=== PATIENT | male | born 1940 | race Caucasian/White ===

== ENCOUNTER 2019-04-20 20:33 | Inpatient (IN) | payer MEDICARE, OTHER ==
[~2019-04-20] VITALS: Ht 185.4 cm; Wt 93.0 kg
[2019-04-20] MEDS ORDERED: TRAZ-182 PO (21:08)
[2019-04-20] MEDS ORDERED: SILV10PO2 MC (21:08)
[2019-04-20] MEDS ORDERED: FURO20TA4 PO (21:08)
[2019-04-20] MEDS ORDERED: DABI150C PO (21:08)
[2019-04-20] MEDS ORDERED: HYDR-4077 PO (21:08)
[2019-04-20] MEDS ORDERED: BENA40TA8 PO (21:08)
[2019-04-20] MEDS ORDERED: SERT25TA PO (21:08)
[2019-04-20] MEDS ORDERED: SENN-18 PO (21:08)
[2019-04-20] MEDS ORDERED: DILT-3 PO (21:08)
[2019-04-20] MEDS ORDERED: DOCU250C14 PO (21:08)
[2019-04-20] MEDS ORDERED: METO50TA16 PO (21:08)
[2019-04-20] MEDS ORDERED: DONE10TA44 PO (21:08)
[2019-04-20] MEDS ORDERED: CIPR500T5 PO (21:08)
--- NOTE | 2019-04-20 21:10 | NUR ---
MD AT BEDSIDE FOR HX AND PHYSICAL PT IS ALERT NAD, HERE FOR MEDICAL CLEARANCE CALM AND COMPLIANT [address] : DANGER TO SELF AND OTHERS SIGNED BY BIBIANA ROCHA
[2019-04-20 21:27] LABS: BASOPHILS # (AUTO) 0.1 K/uL (0.0-8.0); BASOPHILS % (AUTO) 0.8 % (0.0-2.0); EOSINOPHILS # (AUTO) 0.3 K/uL (0.0-0.7); HEMATOCRIT 46.4 % (36.7-47.1); HEMOGLOBIN 15.5 g/dL (12.5-16.3); LYMPHOCYTES # (AUTO) 0.9 K/uL (20.0-40.0); LYMPHOCYTES % (AUTO) 10.3 % (20.5-51.5); MEAN CORPUSCULAR HEMOGLOBIN 32.5 uug (23.8-33.4); MEAN CORPUSCULAR HGB CONC 34 g/dL (32.5-36.3); MEAN CORPUSCULAR VOLUME 97.1 fL (73.0-96.2); MONOCYTES # (AUTO) 0.9 K/uL (2.0-10.0); MONOCYTES % (AUTO) 10.2 % (0.0-11.0); NEUTROPHILS # (AUTO) 6.5 K/uL (1.8-8.9); NEUTROPHILS % (AUTO) 74.7 % (38.5-71.5); PLATELET COUNT (AUTO) 241 K/uL (152-348); RED BLOOD CELL COUNT(AUTO) 4.78 MIL/uL (4.06-5.63); WHITE BLOOD COUNT (AUTO) 8.7 K/uL (3.6-10.2)
[2019-04-20 21:37] LABS: CARBON DIOXIDE 25 mmol/L (21-32); CHLORIDE 108 mmol/L (98-107); CREATININE 1.6 mg/dL (0.6-1.3); GLUCOSE 106 mg/dL (74-106); POTASSIUM 4.7 mmol/L (3.5-5.1); UREA NITROGEN, BLOOD 28 mg/dL (7-18)
[2019-04-20 21:43] LABS: ALANINE AMINOTRANSFERASE 27 U/L (16-63); ALKALINE PHOSPHATASE 93 U/L (50-136); ASPARTATE AMINOTRANSFERASE 19 U/L (15-37); BILIRUBIN,DIRECT 0.1 mg/dL (0.0-0.2); BILIRUBIN,TOTAL 0.4 mg/dL (0.2-1.0)
[2019-04-20 21:47] LABS: ACETAMINOPHEN < 2.0 ug/mL (10-30)
[2019-04-20 21:51] LABS: THYROID STIMULATING HORMONE 1.889 mIU/mL (0.358-3.740)
[2019-04-20 21:55] LABS: ETHANOL < 3 MG/DL (0-0)
--- NOTE | 2019-04-20 22:09 | NUR ---
GAURI GLOVER ON THE PHONE W/ JAVIER GLOVER PT WILL BE ADMITTED FOR TELE RM 305 DX AFIB NEW ONSET PT NAD ASLEEP BUT EASILY ROUSED SIDERAILSX2 UP BED AT LOWEST POSITION KEPT WARM DRY AND COMFORTABLE COMPLIANT AOX2 (NAME AND PLACE)
--- NOTE | 2019-04-20 22:10 | NUR ---
CALL FOR BED DONE
--- NOTE | 2019-04-20 22:22 | NUR ---
ATTEMPTED TO CALL FOR HAND OFF AND SBAR BUT STATES RN IS STILL ENROUTE ELECTROSTATIC PAINTER STATES THEY WILL CALL BACK ONCE SHE IS HERE, APPROX 20MINS
--- NOTE | 2019-04-20 22:35 | NUR ---
Dr. Le spoke with Dr. Chau on phone. Pt is medically cleared.
--- NOTE | 2019-04-20 22:40 | NUR ---
HAND OFF AND SBAR GIVEN TO RADHA GAINES
[2019-04-20] MEDS ORDERED: SENNOSIDES 1 TABLET PO PRN (22:45)
[2019-04-20] MEDS ORDERED: DOCUSATE SODIUM 250 MG CAPSULE PO PRN (22:45)
[2019-04-20 23:00] VITALS: BP 163/87
[2019-04-20] MEDS ORDERED: TEMAZEPAM 7.5 MG CAPSULE PO PRN (23:00)
[2019-04-20] MEDS ORDERED: MAG HYDROX/AL HYDROX/SIMETH 30 ML LIQUID UDC PO PRN (23:00)
[2019-04-20] MEDS ORDERED: MAGNESIUM HYDROXIDE 30 ML LIQUID UDC PO PRN (23:00)
[2019-04-20] MEDS ORDERED: LORAZEPAM 1 MG TABLET PO PRN (23:00)
[2019-04-20] MEDS ORDERED: ACETAMINOPHEN 325 MG TABLET PO PRN (23:00)
--- NOTE | 2019-04-20 23:03 | NUR ---
Pt. admitted to [facility] 138[facility] , under care of Dr. VALLADARES/ JAVIER Belongs List completed ALL BELONGINGS W/ PT
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
[2019-04-21] MEDS ORDERED: hydrALAZINE HCL 25 MG TABLET PO ONE
[2019-04-21] MEDS ORDERED: hydrALAZINE HCL 25 MG TABLET PO PRN (00:15)
[2019-04-21] MEDS ORDERED: hydrALAZINE HCL 25 MG TABLET ONE (00:29)
--- NOTE | 2019-04-21 06:05 | NUR ---
Patient was showered when admitted and went to bed, slept well. UA is needed, patient just got up to try and go with urinal, but was unable to and said he would try again later. BP is WNL. Will endorse to next shift.
[2019-04-21] MEDS ORDERED: Z GUARD REMEDY PASTE 57 GM TUBE TOP PRN (07:15)
[2019-04-21 07:30] VITALS: BP 157/79
[2019-04-21] MEDS ORDERED: DABIGATRAN ETEXILATE MESYLATE 150 MG CAPSULE PO SCH (09:00)
[2019-04-21] MEDS ORDERED: DABIGATRAN ETEXILATE MESYLATE 150 MG CAPSULE PO ONE (09:00)
[2019-04-21] MEDS: METOPROLOL TARTRATE 50 MG TABLET PO SCH ×2 (09:21→20:40)
[2019-04-21] MEDS: hydrALAZINE HCL 50 MG TABLET PO SCH ×2 (09:21→21:00)
[2019-04-21] MEDS: FUROSEMIDE 20 MG TABLET PO SCH (09:22)
[2019-04-21] MEDS: DILTIAZEM HCL CD 240 MG CAP.SR.24H PO SCH (09:22)
[2019-04-21] MEDS: DONEPEZIL 10 MG TABLET PO SCH (09:22)
--- NOTE | 2019-04-21 11:04 | NUR ---
Family Contact: PEGGY contacted pts caregiver Rochelle Holland ([phone]) for treatment and discharge planning. Per Amalia, she stated that she is pts power authority and will fax legal documentations. Pt currently resides at a Assisted living, [place] [address]; ([phone]). Per Amalia, expressed that she is involved in pts care and that pt needs higher care such as Board and Care. Amalia expressed that she has been in contact with [employer] and is waiting for there approval. PEGGY informed her that pt wishes to be discharged to his Assisted Living at [place].
--- NOTE | 2019-04-21 12:57 | NUR ---
Discharge Confirmation: roundhouse worker called social insurance administrator Darshan confirmed that pt can go back to facility upon discharge [[phone]], confirmed that pt will be accepted back to the facility once pt is ready to be discharged. Darshan expressed that pts caregiver Amalia ([phone]) is the POA of pt and would like SW to inform her as well.
--- NOTE | 2019-04-21 14:58 | NUR ---
INITIAL DISCHARGE: Pt currently resides at a Assisted Living at [address] [place] [address]; ([phone]). Per pt, he would like to go back to the Assisted Living. Per pts caregiver, Amalia ([phone]) would like pt to go to a Board and Care at [facility]. PEGGY will work with the pt and the MD regarding appropriate planning. SW will form a safe and proper discharge. Addendum: 04/21/19 at 1541 by JOSSELYN WOODS INITIAL DISCHARGE: Pt currently resides at a Assisted Living at [address] [place] [address]; ([phone]). Per pt, he would like to go back to the Assisted Living. Per pts caregiver, Amalia ([phone]) would like pt to go to a Board and Care at [facility] or to [facility]. PEGGY will work with the pt and the MD regarding appropriate planning. SW will form a safe and proper discharge.
--- NOTE | 2019-04-21 15:36 | NUR ---
SW Discharge Planning Update: Katherinejoseph Castillo from [facility] ([phone]) was sent from admin Darshan from [facility] ([phone]) where pt was initially resided at. [facility] and [facility] are affiliated facilities. Katherine Castillo from [facility] ([phone]) accepted pt and will take pt upon discharge.
[2019-04-21 16:00] VITALS: BP 139/78
[2019-04-21] MEDS: DABIGATRAN ETEXILATE MESYLATE 150 MG CAPSULE PO SCH (18:10)
[2019-04-21 18:42] LABS: *BILIRUBIN,URIN NEGATIVE (NEGATIVE); *COLOR,URINE YELLOW (YELLOW); *KETONES,URINE NEGATIVE (NEGATIVE); *UROBILINOGEN,URINE 0.2 E.U./dl (NORMAL); LEUKOCYTE ESTERASE ,URINE NEGATIVE (NEGATIVE); NITRITE, URINE NEGATIVE (NEGATIVE); UGLUCOSE NEGATIVE (NEGATIVE)
[2019-04-21 19:49] LABS: *BLOOD, URINE 1+ (NEGATIVE); *CLARITY,URINE SLIGHTLY HAZY (CLEAR)
[2019-04-21 19:53] LABS: RBC,URINE 20-50 /HPF (0-3); SQUAMOUS EPITHELIAL CELL,UR FEW /HPF (NONE SEEN); WBC,URINE 0-3 /HPF (0-3)
[2019-04-21 19:54] LABS: MUCUS,URINE MODERATE /LPF (0-FEW)
[2019-04-21 20:18] VITALS: BP 148/88
[2019-04-21] MEDS: DIVALPROEX SPRINKLE 125 MG CAP.SPRINK PO SCH (20:39)
[2019-04-21] MEDS: BENZTROPINE MESYLATE 0.5 MG TABLET PO SCH (20:39)
[2019-04-21] MEDS ORDERED: risperiDONE-M 0.5 MG TAB.RAPDIS PO SCH (21:00)
--- NOTE | 2019-04-21 22:00 | NUR ---
received to care, isolative, but easily agitated. compliant with medications, but remains confused. difficult to redirect, at times. as of 2199, he appears to be asleep. no distress noted. will continue to monitor closely.
--- NOTE | 2019-04-22 01:45 | NUR ---
PRN restoril given for insomnia/ restlessness
--- NOTE | 2019-04-22 06:00 | NUR ---
SLEPT 5.75 HOURS.
[2019-04-22 07:30] VITALS: BP 128/83
--- NOTE | 2019-04-22 08:43 | NUR ---
Family Contact: SW contacted pts caregiver Rochelle Holland ([phone]) to inform her that Katherine from [facility] ([facility]), ([phone]) came the the hospital for an evaluation and approved to admit pt upon discharge. Amalia, ([phone]) agreed to the treatment plan and discharge plan.
[2019-04-22] MEDS: DABIGATRAN ETEXILATE MESYLATE 150 MG CAPSULE PO SCH ×4 (09:00→17:55)
[2019-04-22] MEDS: FUROSEMIDE 20 MG TABLET PO SCH (09:59)
[2019-04-22] MEDS: DIVALPROEX SPRINKLE 125 MG CAP.SPRINK PO SCH ×2 (09:59→13:17)
[2019-04-22] MEDS: METOPROLOL TARTRATE 50 MG TABLET PO SCH ×2 (09:59→20:19)
[2019-04-22] MEDS: DONEPEZIL 10 MG TABLET PO SCH (09:59)
--- NOTE | 2019-04-22 10:00 | NUR ---
AM Pradaxa already charted and given at 1000 today.
[2019-04-22] MEDS: DILTIAZEM HCL CD 240 MG CAP.SR.24H PO SCH (10:01)
[2019-04-22] MEDS: hydrALAZINE HCL 50 MG TABLET PO SCH ×2 (10:02→21:00)
[2019-04-22 16:00] VITALS: BP 140/83
[2019-04-22] MEDS ORDERED: Z GUARD REMEDY PASTE 57 GM TUBE TOP PRN (17:15)
[2019-04-22] MEDS: BENZTROPINE MESYLATE 0.5 MG TABLET PO SCH (20:19)
[2019-04-22] MEDS: risperiDONE-M 0.5 MG TAB.RAPDIS PO SCH (20:19)
[2019-04-22 20:33] VITALS: BP 125/81
--- NOTE | 2019-04-22 22:00 | NUR ---
received to care, lying in bed, anxious, stating that he wants to be discharged soon, but pleasant upon approach. compliant with medications and staff direction. pt was provided with 1;1 interaction and was given reality orientation and emotional support. as of 2199, he appears to be asleep. no distress noted. will continue to monitor closely.
--- NOTE | 2019-04-23 06:46 | NUR ---
slept 8 hours. continues to sleep. no distress noted.
[2019-04-23 07:30] VITALS: BP 151/82
[2019-04-23] MEDS ORDERED: DIVALPROEX SPRINKLE 125 MG CAP.SPRINK PO SCH ×2 (09:00→21:00)
[2019-04-23] MEDS: DONEPEZIL 10 MG TABLET PO SCH (09:19)
[2019-04-23] MEDS: FUROSEMIDE 20 MG TABLET PO SCH (09:19)
[2019-04-23] MEDS: METOPROLOL TARTRATE 50 MG TABLET PO SCH ×2 (09:20→20:15)
[2019-04-23] MEDS: DABIGATRAN ETEXILATE MESYLATE 150 MG CAPSULE PO SCH ×2 (09:25→17:40)
[2019-04-23] MEDS: DILTIAZEM HCL CD 240 MG CAP.SR.24H PO SCH (09:25)
[2019-04-23] MEDS: hydrALAZINE HCL 50 MG TABLET PO SCH ×2 (09:26→20:15)
--- NOTE | 2019-04-23 12:23 | NUR ---
TECHNICAL SPECIALIST CYTOLOGY DR HASTINGS DPM NOTIFIED FOR CONSULT FOR NAIL CARE FOR PATIENT. DISCUSSED WITH PRIMARY NURSE FOR THE DAY.
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
--- NOTE | 2019-04-23 15:44 | NUR ---
Family Contact: Pts caregiver, Amalia ([phone]) faxed her certifications for POA.
--- NOTE | 2019-04-23 15:45 | NUR ---
Facility Contact: PEGGY faxed clinicals to [facility] to Katherine, ([phone]).
[2019-04-23 16:29] VITALS: BP 149/79
[2019-04-23] MEDS: risperiDONE-M 0.5 MG TAB.RAPDIS PO SCH ×2 (17:40→20:14)
[2019-04-23] MEDS: NEOMY/BACITRAC/POLYMI OINT 28.35 GM TUBE TOP SCH (17:42)
[2019-04-23] MEDS: BENZTROPINE MESYLATE 0.5 MG TABLET PO SCH (20:14)
[2019-04-23] MEDS: DIVALPROEX SPRINKLE 125 MG CAP.SPRINK PO SCH (20:14)
[2019-04-23 20:15] VITALS: BP 113/71
--- NOTE | 2019-04-23 22:00 | NUR ---
received to care, lying in bed, pleasant upon approach. compliant with medications and staff direction. as of 0, he appears to be asleep. no distress noted. will continue to monitor closely.
--- NOTE | 2019-04-24 06:00 | NUR ---
SLEPT 8.75 HOURS.
[2019-04-24 08:00] VITALS: BP 152/84
[2019-04-24] MEDS: FUROSEMIDE 20 MG TABLET PO SCH (08:30)
[2019-04-24] MEDS: risperiDONE-M 0.5 MG TAB.RAPDIS PO SCH ×3 (08:30→20:49)
[2019-04-24] MEDS: METOPROLOL TARTRATE 50 MG TABLET PO SCH ×2 (08:30→21:01)
[2019-04-24] MEDS: DIVALPROEX SPRINKLE 125 MG CAP.SPRINK PO SCH ×2 (08:30→20:49)
[2019-04-24] MEDS: DONEPEZIL 10 MG TABLET PO SCH (08:30)
[2019-04-24] MEDS: DABIGATRAN ETEXILATE MESYLATE 150 MG CAPSULE PO SCH ×2 (08:31→16:11)
[2019-04-24] MEDS: DILTIAZEM HCL CD 240 MG CAP.SR.24H PO SCH (08:32)
[2019-04-24] MEDS: CLOTRIMAZOLE 1% CREAM 30 GM TUBE TOP SCH (08:35)
[2019-04-24] MEDS: NEOMY/BACITRAC/POLYMI OINT 28.35 GM TUBE TOP SCH ×2 (08:35→16:13)
[2019-04-24] MEDS: hydrALAZINE HCL 50 MG TABLET PO SCH ×2 (08:38→21:50)
[2019-04-24 15:56] VITALS: BP 110/70
--- NOTE | 2019-04-24 17:17 | NUR ---
GPS: RECEIVED PATIENT ON HIS BED, AOX1, HOWEVER RECALL SOME EVENTS, PATIENT UNSTEADY IN AMBULATION HOWEVER CAN WALK WITH ASSIST, COMPLIANT WITH HIS MEDICATION, SITS IN THE CHAIR AND STAYED IN THE DINING ROOM IN THE MORNING, PATIENT GOT TIRED AND ASK TO GO BACK TO HIS BED , PATIENT REMAIN CALM AND COOPERATIVE IN NO DISTRESS, WILL CONTINUE MONITOR
--- NOTE | 2019-04-24 20:00 | NUR ---
RECEIVED PATIENT IN HIS ROOM IN BED SLEEPING BUT EASILY AROUSABLE. HE IS NOTED A/O X 1, CALM AND PLEASANT UPON APPROACHED. V/S STABLE AT THIS TIME. PATIENT IN REASSURED FOR HIS SAFETY. SAFETY AND FALL PRECAUTION IN PLACE. WILL CONTINUE TO MONITOR.
[2019-04-24 20:05] VITALS: BP 118/67
[2019-04-24] MEDS: BENZTROPINE MESYLATE 0.5 MG TABLET PO SCH (20:49)
[2019-04-25 06:50] LABS: BASOPHILS # (AUTO) 0.1 K/uL (0.0-8.0); BASOPHILS % (AUTO) 0.6 % (0.0-2.0); EOSINOPHILS # (AUTO) 0.5 K/uL (0.0-0.7); HEMOGLOBIN 17.2 g/dL (12.5-16.3); LYMPHOCYTES # (AUTO) 1.1 K/uL (20.0-40.0); LYMPHOCYTES % (AUTO) 10.5 % (20.5-51.5); MEAN CORPUSCULAR HEMOGLOBIN 32.3 uug (23.8-33.4); MEAN CORPUSCULAR HGB CONC 33 g/dL (32.5-36.3); MEAN CORPUSCULAR VOLUME 97.6 fL (73.0-96.2); MONOCYTES % (AUTO) 10.1 % (0.0-11.0); NEUTROPHILS # (AUTO) 7.5 K/uL (1.8-8.9); NEUTROPHILS % (AUTO) 73.8 % (38.5-71.5); PLATELET COUNT (AUTO) 280 K/uL (152-348); RED BLOOD CELL COUNT(AUTO) 5.33 MIL/uL (4.06-5.63); WHITE BLOOD COUNT (AUTO) 10.2 K/uL (3.6-10.2)
[2019-04-25 07:09] LABS: ALANINE AMINOTRANSFERASE 22 U/L (16-63); ALKALINE PHOSPHATASE 95 U/L (50-136); ASPARTATE AMINOTRANSFERASE 15 U/L (15-37); BILIRUBIN,TOTAL 0.6 mg/dL (0.2-1.0); CARBON DIOXIDE 22 mmol/L (21-32); CHLORIDE 108 mmol/L (98-107); CREATININE 1.4 mg/dL (0.6-1.3); GLUCOSE 102 mg/dL (74-106); MAGNESIUM 2.4 mg/dL (1.8-2.4); PHOSPHOROUS 3.7 mg/dL (2.5-4.9); POTASSIUM 4.1 mmol/L (3.5-5.1); TOTAL PROTEIN, SERUM 7.7 g/dL (6.4-8.2); UREA NITROGEN, BLOOD 36 mg/dL (7-18)
[2019-04-25 08:02] VITALS: BP 153/72
[2019-04-25] MEDS: NEOMY/BACITRAC/POLYMI OINT 28.35 GM TUBE TOP SCH ×2 (08:28→16:50)
[2019-04-25] MEDS: METOPROLOL TARTRATE 50 MG TABLET PO SCH ×2 (08:29→20:10)
[2019-04-25] MEDS: FUROSEMIDE 20 MG TABLET PO SCH (08:29)
[2019-04-25] MEDS: DILTIAZEM HCL CD 240 MG CAP.SR.24H PO SCH (08:29)
[2019-04-25] MEDS: CLOTRIMAZOLE 1% CREAM 30 GM TUBE TOP SCH (08:29)
[2019-04-25] MEDS: risperiDONE-M 0.5 MG TAB.RAPDIS PO SCH ×3 (08:29→20:09)
[2019-04-25] MEDS: DONEPEZIL 10 MG TABLET PO SCH (08:29)
[2019-04-25] MEDS: DABIGATRAN ETEXILATE MESYLATE 150 MG CAPSULE PO SCH ×2 (08:30→16:50)
[2019-04-25] MEDS: hydrALAZINE HCL 50 MG TABLET PO SCH ×2 (08:30→20:10)
[2019-04-25] MEDS: DIVALPROEX SPRINKLE 125 MG CAP.SPRINK PO SCH ×2 (08:30→20:09)
[2019-04-25 16:08] VITALS: BP 136/70
--- NOTE | 2019-04-25 16:24 | NUR ---
PT NOTED TO HAVE SOME BLADDER DISCOMFORT. UPON ASSESSMENT, NOTED BLADDER QUITE FIRM AND DISTENDED. PERFORMED BLADDER SCANNER, NOTED WITH >999CC. ASKED PT TO URINATE. BLADDER CONTINUES TO BE DISTENDED. PERFORMED STRAIGHT CATH WITH 16FR CATHETER USING ASEPTIC TECHNIQUE. REMOVED APPX 850CC OF URINE. TOLERATED PROCEDURE WELL.
[2019-04-25 20:00] VITALS: BP 134/53
[2019-04-25] MEDS: BENZTROPINE MESYLATE 0.5 MG TABLET PO SCH (20:09)
--- NOTE | 2019-04-26 06:53 | NUR ---
BLADDER SCANNER WAS DONE, WITH A RESULT OF 999ML IN BLADDER. DR PEREZ WAS NOTIFY AND NEW ORDER OBTAINED TO LEAVE THE TAMAYO CATH UNTIL FURTHER EVALUATION. ATTEMPTED TO INSERT A TAMAYO CATH USING A 16 FR. CATH. HOWEVER, THERE WAS SOME RESISTANCE AT TIME ON INSERTION. TO NOT CAUSE ANY TRAUMA, A STRAIGHT IN-AND-OUT CATH WAS THEN DONE USING A 15 FR. STRAIGHT CATH. 1100ML WERE REMOVED FROM HIS BLADDER. PATIENT TOLERATED WELL. WILL ENDORSE TO AM SHIFT TO F/U WITH . WILL CONTINUE TO MONITOR.
[2019-04-26 07:30] VITALS: BP 121/69
[2019-04-26] MEDS: DONEPEZIL 10 MG TABLET PO SCH (08:32)
[2019-04-26] MEDS: DIVALPROEX SPRINKLE 125 MG CAP.SPRINK PO SCH ×2 (08:32→20:55)
[2019-04-26] MEDS: DABIGATRAN ETEXILATE MESYLATE 150 MG CAPSULE PO SCH ×2 (08:33→17:11)
[2019-04-26] MEDS: hydrALAZINE HCL 50 MG TABLET PO SCH ×2 (08:33→20:56)
[2019-04-26] MEDS: DILTIAZEM HCL CD 240 MG CAP.SR.24H PO SCH (08:34)
[2019-04-26] MEDS: CLOTRIMAZOLE 1% CREAM 30 GM TUBE TOP SCH (08:35)
[2019-04-26] MEDS: NEOMY/BACITRAC/POLYMI OINT 28.35 GM TUBE TOP SCH ×2 (08:35→17:12)
[2019-04-26] MEDS: METOPROLOL TARTRATE 50 MG TABLET PO SCH ×2 (08:37→20:57)
[2019-04-26] MEDS: FUROSEMIDE 20 MG TABLET PO SCH (08:37)
[2019-04-26] MEDS: risperiDONE-M 0.5 MG TAB.RAPDIS PO SCH ×3 (08:37→20:57)
[2019-04-26 09:30] LABS: BASOPHILS # (AUTO) 0.1 K/uL (0.0-8.0); BASOPHILS % (AUTO) 0.7 % (0.0-2.0); EOSINOPHILS # (AUTO) 0.3 K/uL (0.0-0.7); EOSINOPHILS % (AUTO) 4.2 % (0.0-7.0); HEMATOCRIT 47.2 % (36.7-47.1); HEMOGLOBIN 15.6 g/dL (12.5-16.3); LYMPHOCYTES # (AUTO) 0.6 K/uL (20.0-40.0); LYMPHOCYTES % (AUTO) 7.3 % (20.5-51.5); MEAN CORPUSCULAR HEMOGLOBIN 32.5 uug (23.8-33.4); MEAN CORPUSCULAR HGB CONC 33 g/dL (32.5-36.3); MEAN CORPUSCULAR VOLUME 98.5 fL (73.0-96.2); MONOCYTES # (AUTO) 0.5 K/uL (2.0-10.0); MONOCYTES % (AUTO) 5.9 % (0.0-11.0); NEUTROPHILS # (AUTO) 6.5 K/uL (1.8-8.9); NEUTROPHILS % (AUTO) 81.9 % (38.5-71.5); PLATELET COUNT (AUTO) 234 K/uL (152-348); RED BLOOD CELL COUNT(AUTO) 4.79 MIL/uL (4.06-5.63)
[2019-04-26 10:01] LABS: CARBON DIOXIDE 25 mmol/L (21-32); CHLORIDE 106 mmol/L (98-107); CREATININE 1.5 mg/dL (0.6-1.3); GLUCOSE 178 mg/dL (74-106); POTASSIUM 3.6 mmol/L (3.5-5.1); UREA NITROGEN, BLOOD 34 mg/dL (7-18)
[2019-04-26 15:57] VITALS: BP 101/51
[2019-04-26 16:10] LABS: A/G RATIO 0.9 (0.7-1.7); ALBUMIN 3.2 g/dL (2.9-4.4); ALPHA-1-GLOBULIN 0.2 g/dL (0.0-0.4); BETA GLOBULIN 1.3 g/dL (0.7-1.3); GAMMA GLOBULIN 1.1 g/dL (0.4-1.8); GLOBULIN, TOTAL 3.6 g/dL (2.2-3.9); M-SPIKE Not Observed g/dL (Not Observed)
--- NOTE | 2019-04-26 17:32 | NUR ---
SPOKE WITH DR. HEREDIA, WITH AN ORDER TO PREPARE 14F-16F COUDE FOR THE UROLIST THAT WILL MAKE ROUNDS THIS PM, IF EVER PATIENT EXPERIENCE ANY DISCOMFORT TO SEND PATIENT TO ER, PATIENT ON CLOSE MONITORING
--- NOTE | 2019-04-26 18:06 | NUR ---
PATIENT HAD HIS CT SCAN DONE
[2019-04-26 20:15] VITALS: BP 138/79
[2019-04-26] MEDS: BENZTROPINE MESYLATE 0.5 MG TABLET PO SCH (20:55)
[2019-04-26] MEDS: TAMSULOSIN HCL 0.4 MG CAP.SR.24H PO SCH (22:30)
--- NOTE | 2019-04-26 22:30 | NUR ---
received to care, lying in bed, pleasant upon approach. pt continues to retaine urine, denies any wheeler or discomfort. complaint with medications and staff direction. avelina Hemphill {
--- NOTE | 2019-04-26 22:30 | NUR ---
received to care, lying in bed, pleasant upon approach. pt continues to retaine urine, denies any pain or discomfort. compliant with medications and staff direction. seen by Dr Hemphill (urology), and 14 fr coude indwelling catheter was placed, and remains patent. 1100 ml of clear and jane urine was obtained, so far, no distress noted.
--- NOTE | 2019-04-27 06:00 | NUR ---
SLEPT 7.5 HOURS.
[2019-04-27 07:30] VITALS: BP 129/67
[2019-04-27] MEDS: DONEPEZIL 10 MG TABLET PO SCH (08:10)
[2019-04-27] MEDS: DIVALPROEX SPRINKLE 125 MG CAP.SPRINK PO SCH ×2 (08:10→21:00)
[2019-04-27] MEDS: FUROSEMIDE 20 MG TABLET PO SCH (08:10)
[2019-04-27] MEDS: risperiDONE-M 0.5 MG TAB.RAPDIS PO SCH ×3 (08:10→21:00)
[2019-04-27] MEDS: CLOTRIMAZOLE 1% CREAM 30 GM TUBE TOP SCH (08:11)
[2019-04-27] MEDS: METOPROLOL TARTRATE 50 MG TABLET PO SCH ×2 (08:11→20:14)
[2019-04-27] MEDS: NEOMY/BACITRAC/POLYMI OINT 28.35 GM TUBE TOP SCH ×2 (08:12→16:48)
[2019-04-27] MEDS: DABIGATRAN ETEXILATE MESYLATE 150 MG CAPSULE PO SCH ×2 (08:13→16:48)
[2019-04-27] MEDS: DILTIAZEM HCL CD 240 MG CAP.SR.24H PO SCH (08:14)
[2019-04-27] MEDS: hydrALAZINE HCL 50 MG TABLET PO SCH ×2 (08:14→20:12)
--- NOTE | 2019-04-27 13:57 | NUR ---
Family Contact: SW contacted patients caregiver, Amalia ([phone]) left her a voicemail on updating on patients status.
[2019-04-27 15:02] LABS: CREATININE 1.2 mg/dL (0.6-1.3); POTASSIUM 3.9 mmol/L (3.5-5.1)
--- NOTE | 2019-04-27 15:32 | NUR ---
Facility Contact: PEGGY spoke to cyber systems administrator Katherine, ([phone]) from [facility] and updated patients status. Katherine addressed that patients bed is secure upon discharge.
[2019-04-27 15:46] VITALS: BP 93/54
--- NOTE | 2019-04-27 17:34 | NUR ---
GPS: RECEIVED PATIENT ON HIS BED AOX2, COMPLIANT WITH MEDICATION, WITH TAMAYO CATH 14F ATTACH WITH BEDSIDE BAG, TOTAL URINE OUTPUT WAS 500ML, WITH FEW SEDIMENTS AND TEA COLORED, PATIENT ENCOURAGED TO DRINK WATER, PATIENT COMPLIANT WITH TREATMENT HOWEVER DENIES SI AND HI, NO DISTRESS NOTED
[2019-04-27 21:00] VITALS: BP 93/65
[2019-04-27] MEDS: TAMSULOSIN HCL 0.4 MG CAP.SR.24H PO SCH (21:00)
[2019-04-27] MEDS: BENZTROPINE MESYLATE 0.5 MG TABLET PO SCH (21:00)
[2019-04-27 22:30] VITALS: BP 99/68
--- NOTE | 2019-04-27 22:30 | NUR ---
received to care, lying in bed, asleep. easy to be awakened, but falls right back to sleep. b/p was initially 93/65, so his b/p meds were held. he was revaluated later, and remained sedated but arousable, so all his medications were held. as of 2229, he remains asleep. f/c remains patent, draining dark jane urine, with slight sediment, in adequate amounts. po fluids encouraged, when pt is awake. b/p currently is 99/68. remains asleep. no distress noted. will continue to monitor closely.
[2019-04-28 07:30] VITALS: BP 161/77
[2019-04-28] MEDS: DONEPEZIL 10 MG TABLET PO SCH (08:35)
[2019-04-28] MEDS: FUROSEMIDE 20 MG TABLET PO SCH (08:35)
[2019-04-28] MEDS: DIVALPROEX SPRINKLE 125 MG CAP.SPRINK PO SCH ×2 (08:35→20:52)
[2019-04-28] MEDS: risperiDONE-M 0.5 MG TAB.RAPDIS PO SCH ×3 (08:35→20:51)
[2019-04-28] MEDS: METOPROLOL TARTRATE 50 MG TABLET PO SCH ×2 (08:36→20:52)
[2019-04-28] MEDS: DABIGATRAN ETEXILATE MESYLATE 150 MG CAPSULE PO SCH ×2 (08:37→17:44)
[2019-04-28] MEDS: DILTIAZEM HCL CD 240 MG CAP.SR.24H PO SCH (08:38)
[2019-04-28] MEDS: hydrALAZINE HCL 50 MG TABLET PO SCH ×2 (08:39→20:52)
[2019-04-28] MEDS: NEOMY/BACITRAC/POLYMI OINT 28.35 GM TUBE TOP SCH ×2 (08:41→17:45)
[2019-04-28] MEDS: CLOTRIMAZOLE 1% CREAM 30 GM TUBE TOP SCH (08:41)
--- NOTE | 2019-04-28 12:02 | NUR ---
Facility Contact: PEGGY faxed Katherine from [facility], ([phone]) and expressed that she will be accepted back to facility.
--- NOTE | 2019-04-28 12:33 | NUR ---
Family Contact: SW contacted patients caregiver, Amalia ([phone]) and left a voicemail in regards to patients discharge. SW also shared that patient is in need of his glasses.
[2019-04-28 16:22] VITALS: BP 155/68
[2019-04-28 19:50] VITALS: BP 120/70
[2019-04-28] MEDS: BENZTROPINE MESYLATE 0.5 MG TABLET PO SCH (20:51)
[2019-04-28] MEDS: TAMSULOSIN HCL 0.4 MG CAP.SR.24H PO SCH (20:52)
--- NOTE | 2019-04-28 22:00 | NUR ---
received to care, up in jemal chair, in activity room, pleasant upon approach. assisted to bed, around 1929. was compliant with medications and staff direction. refused a snack, but did take some fluids. continues to cough when swallowing thin liquids. HOB elevated for safety. f/c remains patent, draining clear/ jane urine, in adequate amounts. as of 2199, he remains asleep. no distress noted. will continue to monitor closely.
--- NOTE | 2019-04-29 06:25 | NUR ---
SLEPT 8.25 HOURS. ASSISTED WITH AM CARE, AND SHOWER. DRESSING CHANGE TO LEFT BUTTOCK DONE. CURRENTLY IN BED, ASLEEP. NO DISTRESS NOTED.
[2019-04-29 06:41] LABS: BASOPHILS # (AUTO) 0.1 K/uL (0.0-8.0); BASOPHILS % (AUTO) 0.5 % (0.0-2.0); EOSINOPHILS # (AUTO) 0.3 K/uL (0.0-0.7); EOSINOPHILS % (AUTO) 2.7 % (0.0-7.0); HEMATOCRIT 45.5 % (36.7-47.1); HEMOGLOBIN 15.1 g/dL (12.5-16.3); LYMPHOCYTES # (AUTO) 0.8 K/uL (20.0-40.0); LYMPHOCYTES % (AUTO) 6.7 % (20.5-51.5); MEAN CORPUSCULAR HEMOGLOBIN 31.7 uug (23.8-33.4); MEAN CORPUSCULAR HGB CONC 33 g/dL (32.5-36.3); MEAN CORPUSCULAR VOLUME 95.7 fL (73.0-96.2); MONOCYTES # (AUTO) 1.2 K/uL (2.0-10.0); NEUTROPHILS # (AUTO) 8.9 K/uL (1.8-8.9); NEUTROPHILS % (AUTO) 79.1 % (38.5-71.5); PLATELET COUNT (AUTO) 260 K/uL (152-348); RED BLOOD CELL COUNT(AUTO) 4.76 MIL/uL (4.06-5.63); WHITE BLOOD COUNT (AUTO) 11.3 K/uL (3.6-10.2)
[2019-04-29 06:53] LABS: ALANINE AMINOTRANSFERASE 22 U/L (16-63); ALKALINE PHOSPHATASE 66 U/L (50-136); ASPARTATE AMINOTRANSFERASE 27 U/L (15-37); BILIRUBIN,TOTAL 0.7 mg/dL (0.2-1.0); CARBON DIOXIDE 31 mmol/L (21-32); CHLORIDE 104 mmol/L (98-107); CREATININE 1.4 mg/dL (0.6-1.3); GLUCOSE 97 mg/dL (74-106); MAGNESIUM 1.8 mg/dL (1.8-2.4); PHOSPHOROUS 2.5 mg/dL (2.5-4.9); POTASSIUM 3.9 mmol/L (3.5-5.1); TOTAL PROTEIN, SERUM 6.1 g/dL (6.4-8.2); UREA NITROGEN, BLOOD 30 mg/dL (7-18)
[2019-04-29 07:30] VITALS: BP 130/77
--- NOTE | 2019-04-29 08:03 | NUR ---
Social work Note/Discharge: Patient will be discharged to [facility] [[id number] [facility]; [[phone]]. Please arrange Ambulance transportation for patient at 12:00AM. Spoke with Katherine [Admin Coordinator] at the facility who states they are ready to accept the patient back today. Patient is aware and agreeable with discharge plans. Patient is alert and oriented x3-4, is unable to plan for self-care, however, is willing to accept care at [facility]. Patient denies any suicidal or homicidal ideation. Rochelle Holland, patients caregiver [[phone]] aware and agreeable with discharge plans. Patient will follow-up at the facility with Dr. Damon (Psychiatrist) and Dr. Yusuf (Statistical Financial Analyst). Patient presented with euthymic mood and congruent affect. Addendum: 04/29/19 at 0811 by PEGGY JACKSON Time of discharge will be 12PM.
--- NOTE | 2019-04-29 08:13 | NUR ---
Social work Note/Family Contact: homeworker contacted patients caregiver Amalia, ([phone]) and left a voicemail that patient will be discharged to [facility] [address] [place] [address]; ([phone]) today and may speak to Katherine at [facility].
[2019-04-29] MEDS: DIVALPROEX SPRINKLE 125 MG CAP.SPRINK PO SCH (08:26)
[2019-04-29] MEDS: DABIGATRAN ETEXILATE MESYLATE 150 MG CAPSULE PO SCH (08:26)
[2019-04-29] MEDS: risperiDONE-M 0.5 MG TAB.RAPDIS PO SCH (08:27)
[2019-04-29] MEDS: METOPROLOL TARTRATE 50 MG TABLET PO SCH (08:27)
[2019-04-29] MEDS: DONEPEZIL 10 MG TABLET PO SCH (08:27)
[2019-04-29] MEDS: hydrALAZINE HCL 50 MG TABLET PO SCH (08:28)
[2019-04-29 08:29] VITALS: BP 130/77
[2019-04-29] MEDS: DILTIAZEM HCL CD 240 MG CAP.SR.24H PO SCH (08:29)
[2019-04-29] MEDS: NEOMY/BACITRAC/POLYMI OINT 28.35 GM TUBE TOP SCH (08:29)
[2019-04-29] MEDS: FUROSEMIDE 20 MG TABLET PO SCH (08:29)
[2019-04-29] MEDS: CLOTRIMAZOLE 1% CREAM 30 GM TUBE TOP SCH (08:29)
--- NOTE | 2019-04-29 09:08 | NUR ---
Social work Note/FIREARMS REPORT: Key Filer completed and submitted a [employer] firearms report for 5250 grave disability certification. A copy of report has been placed in patient chart.
--- NOTE | 2019-04-29 10:50 | NUR ---
Gps/Garment Mender- Patient got oup , out of his jemal-chair , per DELIVERY AND MAIL SORTER patient lay down under the sink, and put pillow under his head., Recreational Therapist in the activity w/ patient. Safety reviewed and emphasized. Constant supervision was encouraged , poor safety judgement, needed redirections . supervision.Kept [atient up on his jemal-chair by the Nurses Kush for safety. Addendum: 04/29/19 at 1219 by KATHLEEN FRANCOIS LVN Error in charting wrong patient
--- NOTE | 2019-04-29 11:45 | NUR ---
Gps/Instrument And Controls Technician- Called [facility] ([facility]) gave report to Nurse Phillips. All belongs return back to patient. No complaints noted, patient was well informed of his discharged. Per Wendie GARRISON, keep leach catheter for one more week, and continue to monitor bladder for retension. Patient provided lunch prior discharged.
--- NOTE | 2019-04-29 12:40 | NUR ---
Gps/Igniter Assembler- Discharged to [facility] via ambulance in no distress, was able to eat lunch prior discharged. No complaints noted.
== END 2019-04-29 12:40 | DRG 885 ==
LOC: ER 20:38 → GPS 22:55
PROVIDERS: ADMIT Psychiatry & Neurology Psychosomatic Medicine; ATTEND Internal Medicine
PROC: 0HBRXZZ Excision of Toe Nail, External Approach (ICD-10-PCS; 2019-04-23)
PROC: 0T9B70Z Drainage of Bladder with Drainage Device, Via Natural or Artificial Opening (ICD-10-PCS; principal; 2019-04-26)
DX: F25.0 Schizoaffective disorder, bipolar type (principal); I11.0 Hypertensive heart disease with heart failure; N17.8 Other acute kidney failure; L97.321 Non-pressure chronic ulcer of left ankle limited to breakdown of skin; F03.91 Unspecified dementia, unspecified severity, with behavioral disturbance; T50.1X5A Adverse effect of loop [high-ceiling] diuretics, initial encounter; Y92.099 Unspecified place in other non-institutional residence as the place of occurrence of the external cause; I50.9 Heart failure, unspecified; R33.9 Retention of urine, unspecified; R26.9 Unspecified abnormalities of gait and mobility; F41.9 Anxiety disorder, unspecified; I48.91 Unspecified atrial fibrillation; N13.9 Obstructive and reflux uropathy, unspecified; S31.819A Unspecified open wound of right buttock, initial encounter; X58.XXXA Exposure to other specified factors, initial encounter; Y92.89 Other specified places as the place of occurrence of the external cause; B35.1 Tinea unguium; B35.3 Tinea pedis; Z91.81 History of falling; G62.9 Polyneuropathy, unspecified; R60.0 Localized edema; L60.8 Other nail disorders; Z79.899 Other long term (current) drug therapy; Z86.73 Personal history of transient ischemic attack (TIA), and cerebral infarction without residual deficits
CPT/HCPCS: 36415; 70030-TC; 70450; 71045; 76770; 80164; 83735; 83921; 83970; 84100; 84155; 84165; 84443; 85025; 85730; 87086; 93005; A4663; C1758; G0480; G0480-TC